=== PATIENT | female | born 1970 | race African-American/Black ===

== ENCOUNTER 2020-11-01 12:44 | Inpatient (IN) | payer OTHER ==
[2020-11-01 13:25] VITALS: BMI 34.2
[2020-11-01] MEDS ORDERED: methaDONE HCL 10 MG TABLET (FOR DETOX USE ONLY) PO ONE (17:16)
[2020-11-01] MEDS ORDERED: NICOTINE POLACRILEX 2 MG GUM BUC PRN (17:17)
[2020-11-01] MEDS ORDERED: MAGNESIUM HYDROX 2400MG/30ML ORAL SUSPENSION 30 ML CUP PO PRN (17:17)
[2020-11-01] MEDS ORDERED: IBUPROFEN 400 MG TABLET (FP) PO PRN (17:17)
[2020-11-01] MEDS ORDERED: METHOCARBAMOL 500 MG TABLET PO PRN (17:17)
[2020-11-01] MEDS ORDERED: MAG HYDROX/AL HYDROX/SIMETH 30 ML UNIT-DOSE CUP PO PRN (17:17)
[2020-11-01] MEDS ORDERED: guaiFENesin 200 MG/10 ML 10 ML UNIT-DOSE CUPS PO PRN (17:17)
[2020-11-01] MEDS ORDERED: MENTHOL/PHENOL 1 EACH UD MM PRN (17:17)
[2020-11-01] MEDS ORDERED: MAGNESIUM CITRATE 300 ML BOTTLE PO PRN (17:17)
[2020-11-01] MEDS ORDERED: NALOXONE (NARCAN) HCL 4 MG/0.1 ML SPRAY NS PRN (17:17)
[2020-11-01] MEDS ORDERED: NALOXONE HCL 0.4 MG/ML VIAL IM PRN (17:17)
[2020-11-01] MEDS ORDERED: ONDANSETRON *ODT* 4 MG TABLET SL PRN (17:17)
[2020-11-01] MEDS ORDERED: NICOTINE 10 MG CARTRIDGE (INHALER) IH PRN (17:17)
[2020-11-01] MEDS ORDERED: P-EPHED 60MG/TRIPROLIDI 2.5MG TABLET PO PRN (17:17)
[2020-11-01] MEDS ORDERED: ACETAMINOPHEN 325 MG TABLET (FP) PO PRN ×2 (17:17)
[2020-11-01] MEDS ORDERED: BISMUTH SUBSALICYLATE 524 MG/30 ML PO PRN (17:17)
[2020-11-01] MEDS ORDERED: diazePAM 5 MG TABLET PO PRN (17:17)
[2020-11-01] MEDS: cloNIDine HCL 0.1 MG TABLET PO PRN (19:45)
[2020-11-01] MEDS: diazePAM 5 MG TABLET PO SCH (23:03)
[2020-11-01] MEDS: THIAMINE HCL 100 MG TABLET (FP) PO SCH (23:03)
[2020-11-01] MEDS: hydrOXYzine PAMOATE 25 MG CAPSULE (FP) PO PRN (23:03)
[2020-11-01] MEDS: MELATONIN 5 MG TABLETS PO SCH (23:10)
[2020-11-02] MEDS: diazePAM 5 MG TABLET PO SCH ×4 (06:29→23:11)
[2020-11-02] MEDS ORDERED: methaDONE HCL 10 MG TABLET (FOR DETOX USE ONLY) ONE (08:29)
[2020-11-02] MEDS: PRENATAL VITAMINS W/ FOLIC ACID TABLET (FP) PO SCH (11:12)
[2020-11-02] MEDS: cloNIDine HCL 0.1 MG TABLET PO PRN ×2 (14:56→18:21)
[2020-11-02] MEDS: MELATONIN 5 MG TABLETS PO SCH (23:10)
[2020-11-02] MEDS: hydrOXYzine PAMOATE 25 MG CAPSULE (FP) PO PRN (23:11)
[2020-11-02] MEDS: THIAMINE HCL 100 MG TABLET (FP) PO SCH (23:11)
[2020-11-03] MEDS: diazePAM 5 MG TABLET PO SCH ×3 (08:09→23:28)
[2020-11-03] MEDS ORDERED: methaDONE HCL 10 MG TABLET (FOR DETOX USE ONLY) PO ONE (10:00)
[2020-11-03] MEDS: PRENATAL VITAMINS W/ FOLIC ACID TABLET (FP) PO SCH (10:56)
[2020-11-03] MEDS: cloNIDine HCL 0.1 MG TABLET PO PRN (13:28)
[2020-11-03] MEDS ORDERED: MASKS NR ONE (15:45)
[2020-11-03] MEDS: THIAMINE HCL 100 MG TABLET (FP) PO SCH (23:28)
[2020-11-03] MEDS: MELATONIN 5 MG TABLETS PO SCH (23:30)
[2020-11-04] MEDS ORDERED: diazePAM 5 MG TABLET PO SCH (06:00)
[2020-11-04 08:31] VITALS: BP 183/78; PULSE 54; TEMP 97.7
[2020-11-04] MEDS ORDERED: methaDONE HCL 10 MG TABLET (FOR DETOX USE ONLY) ONE (08:39)
[2020-11-05] MEDS ORDERED: diazePAM 5 MG TABLET PO ONE (06:00)
[2020-11-05] MEDS ORDERED: methaDONE HCL 10 MG TABLET (FOR DETOX USE ONLY) PO ONE (10:00)
== END 2020-11-04 09:03 | disposition left against medical advice (07) | DRG 770 ==
LOC: YASAS 12:44 → Y3N 19:03
PROVIDERS: ADMIT Allergy & Immunology; ATTEND Allergy & Immunology
PROC: HZ2ZZZZ Detoxification Services for Substance Abuse Treatment (ICD-10-PCS; principal; 2020-11-01)
DX: F11.23 Opioid dependence with withdrawal (principal); F10.230 Alcohol dependence with withdrawal, uncomplicated; F17.210 Nicotine dependence, cigarettes, uncomplicated
CPT/HCPCS: 36415; 86780; 93005; 93010; C9803; J0735; U0003; U0005